=== PATIENT | female | born 1960 | race Caucasian/White ===

== ENCOUNTER → 2018-07-15 | Day surgery (SDC) | payer BC ==
[~2018-07-15] MED LIST: ACYC400T PO; ALBU0.63 NEB; ALBU2.5V8 INH; ALBUTEROL SULFATE 2.5 MG/3 ML NEBU. NEB PRN; ATROPINE 0.5 MG/5 ML DISP.SYRIN. IV PRN; BUPR300T4 PO; CHOL500016 PO; CYAN10005 PO; ESTR1TAB15 PO; IV RINGERS SOLUTION,LACTATED 1,000 ML IV SCH; LACT1CAP8 PO; LIDOCAINE 2% PF Vial for OR 5 ML VIAL. ONE; LISI-334 PO; MAGN400T22 PO; MEDR2.5T28 PO; NALOXONE 0.4 MG/ML VIAL. IV PRN; OMEG-33 PO; OMEP40CA5 PO; ONDA4TAB7 PO; ONDANSETRON PF 4 MG/2 ML VIAL. IV PRN; PROPOFOL 40 ML IV ONE; TRAM50TA PO; UBID30CA9 PO; diphenhydrAMINE 50 MG/ML VIAL IV PRN
[2018-07-15 10:10] VITALS: BP 128/82
== END | disposition home or self-care (01) ==
LOC: SURG 07:49
PROVIDERS: ATTEND Internal Medicine Gastroenterology
DX: Z12.11 Encounter for screening for malignant neoplasm of colon (principal); K63.3 Ulcer of intestine; K52.89 Other specified noninfective gastroenteritis and colitis; Z86.010 Personal history of colon polyps; Z79.899 Other long term (current) drug therapy; Z98.890 Other specified postprocedural states; I10 Essential (primary) hypertension; J45.909 Unspecified asthma, uncomplicated; K21.9 Gastro-esophageal reflux disease without esophagitis; F32.9 Major depressive disorder, single episode, unspecified; I25.2 Old myocardial infarction
CPT/HCPCS: 45380; J2704; J7120; J2001

== ENCOUNTER → 2018-07-28 | Outpatient (CLI) | payer BC ==
[2018-07-15 10:10] VITALS: BP 128/82
[~2018-07-28] MED LIST changes: -ALBUTEROL SULFATE 2.5 MG/3 ML NEBU. NEB PRN; -ATROPINE 0.5 MG/5 ML DISP.SYRIN. IV PRN; +IOHEXOL 240 MG/ML 50ML VIAL. ONE; +IOHEXOL 240 MG/ML 50ML VIAL. PO ONE; +IOHEXOL 300 MG/ML 75 ML VIAL. IV ONE; -IV RINGERS SOLUTION,LACTATED 1,000 ML IV SCH; -LIDOCAINE 2% PF Vial for OR 5 ML VIAL. ONE; -NALOXONE 0.4 MG/ML VIAL. IV PRN; -ONDANSETRON PF 4 MG/2 ML VIAL. IV PRN; -PROPOFOL 40 ML IV ONE; -diphenhydrAMINE 50 MG/ML VIAL IV PRN
--- NOTE | 2018-07-28 11:14 | RAD ---
CT angiography of the abdomen and pelvis 07/28/2018 INDICATION: Abnormal colonoscopy COMPARISON STUDY: None TECHNIQUE: Multidetector CT imaging of the abdomen and pelvis was obtained following the administration of IV contrast. 3-D maximum intensity projection reconstructions of abdominal pelvic vasculature were created on an independent workstation and reviewed. FINDINGS: The lung bases are unremarkable. Visualized thoracic aorta is unremarkable. The abdominal aorta is normal in course and caliber without evidence of aneurysm, dissection, or flow-limiting stenosis. Celiac artery, superior mesenteric artery, renal arteries, and inferior mesenteric artery are patent. Common, internal, and external iliac arteries are patent. Common femoral arteries are patent. Liver, gallbladder, spleen, adrenal glands, pancreas are grossly unremarkable. There is a 6 mm hypodensity in the inferior left kidney,, which cannot be characterized on the basis of this exam. Findings may represent a small cyst. There is no bowel obstruction. Mildly increased stool is noted throughout the colon. There is bowel wall thickening involving a short segment of sigmoid colon. Sigmoid colon diverticulosis is noted. No surrounding inflammatory changes are identified. Evaluation of the large bowel is somewhat limited given presence of stool lack of enteric contrast within the colon. No other focal inflammatory changes or overt mass lesions are identified. The appendix is unremarkable. The bladder is grossly unremarkable small enhancing mass seen in the left uterine fundus may represent a fibroid. CT is limited for evaluation. No free fluid or free air is seen in the abdomen or pelvis. No pathologically enlarged adenopathy is seen in the abdomen or pelvis. No acute osseous changes are seen. Prior ORIF left-sided ribs noted. IMPRESSION: 1. Abnormal thickening of short segment of sigmoid colon. Correlate with findings recent endoscopy. Neoplastic etiology not excluded. Focal inflammatory change is possible, though no surrounding inflammatory changes in the mesentery or elsewhere in the abdomen or pelvis are identified. 2. No vascular abnormalities are identified. Normal CT angiographic appearance of the abdomen and pelvis 3. Nonspecific 6 mm hypodensity inferior left kidney. Statistically this most likely represents small cyst, though CT is limited for characterization. Consider follow-up ultrasound as clinically indicated. 4. Distal colonic diverticulosis CT DOSING PQRS STATEMENT: One or more of the following individualized dose reduction techniques were utilized for this examination: 1. Automated exposure control 2. Adjustment of the mA and/or kV according to patient size 3. Use of iterative reconstruction technique Electronically signed by: Anthony Farrell MD (07/28/2018 11:11 AM) [id number]
== END | disposition home or self-care (01) ==
LOC: CT 08:19
PROVIDERS: ATTEND Internal Medicine Gastroenterology
DX: K57.30 Diverticulosis of large intestine without perforation or abscess without bleeding (principal); K55.9 Vascular disorder of intestine, unspecified
CPT/HCPCS: 74174; Q9966; Q9967

== ENCOUNTER → 2018-09-02 | Day surgery (SDC) | payer BC ==
[~2018-09-02] MED LIST changes: +ALBUTEROL SULFATE 2.5 MG/3 ML NEBU. NEB PRN; +ATROPINE 0.5 MG/5 ML DISP.SYRIN. IV PRN; -IOHEXOL 240 MG/ML 50ML VIAL. ONE; -IOHEXOL 240 MG/ML 50ML VIAL. PO ONE; -IOHEXOL 300 MG/ML 75 ML VIAL. IV ONE; +IV RINGERS SOLUTION,LACTATED 1,000 ML IV SCH; +LIDOCAINE 2% PF Vial for OR 5 ML VIAL. ONE; +NALOXONE 0.4 MG/ML VIAL. IV PRN; +ONDANSETRON PF 4 MG/2 ML VIAL. IV PRN; +PROPOFOL 40 ML IV ONE; +diphenhydrAMINE 50 MG/ML VIAL IV PRN
[2018-09-02 11:34] VITALS: BP 119/67
== END | disposition home or self-care (01) ==
LOC: SURG 08:20
PROVIDERS: ATTEND Internal Medicine Gastroenterology
DX: K57.30 Diverticulosis of large intestine without perforation or abscess without bleeding (principal); I10 Essential (primary) hypertension; K21.9 Gastro-esophageal reflux disease without esophagitis; J45.909 Unspecified asthma, uncomplicated; F32.9 Major depressive disorder, single episode, unspecified; I25.2 Old myocardial infarction; I25.10 Atherosclerotic heart disease of native coronary artery without angina pectoris; Z98.890 Other specified postprocedural states; Z72.89 Other problems related to lifestyle; Z79.899 Other long term (current) drug therapy
CPT/HCPCS: 45378; J2704; J7120; J2001

== ENCOUNTER → 2020-03-31 | Outpatient (CLI) | payer BC ==
[2018-09-02 11:34] VITALS: BP 119/67
[~2020-03-31] MED LIST changes: -ALBUTEROL SULFATE 2.5 MG/3 ML NEBU. NEB PRN; -ATROPINE 0.5 MG/5 ML DISP.SYRIN. IV PRN; -BUPR300T4 PO; +BUPR300T92 PO; +CYAN-25 PO; -CYAN10005 PO; -IV RINGERS SOLUTION,LACTATED 1,000 ML IV SCH; -LIDOCAINE 2% PF Vial for OR 5 ML VIAL. ONE; -NALOXONE 0.4 MG/ML VIAL. IV PRN; +OMEP40CA45 PO; -OMEP40CA5 PO; -ONDANSETRON PF 4 MG/2 ML VIAL. IV PRN; -PROPOFOL 40 ML IV ONE; -diphenhydrAMINE 50 MG/ML VIAL IV PRN
--- NOTE | 2020-03-31 08:59 | RAD ---
EXAMINATION: US THYROID, 03/31/2020 7:56 AM CLINICAL INDICATION: Enlarged thyroid TECHNIQUE: Grayscale and color Doppler sonographic images of the thyroid are submitted for interpreta tion. COMPARISON: None. FINDINGS: Right thyroid lobe measures 4.2 x 1.6 x 1.5 cm. The left thyroid lobe measures 3.8 x 1.2 x 1.2 cm. The isthmus measures 3 mm. Thyroid parenchyma is homogeneous and normal in appearance. There is normal blood flow. There are a few tiny 2 mm cyst bilaterally. No suspicious thyroid nodules. IMPRESSION: Unremarkable thyroid gland. No suspicious thyroid nodules. Electronically signed by: Deyanira Motta MD (03/31/2020 8:56 AM) [id number]
== END ==
LOC: US 07:46
PROVIDERS: ATTEND Physician Assistant Medical
DX: E04.1 Nontoxic single thyroid nodule (principal); E04.9 Nontoxic goiter, unspecified
CPT/HCPCS: 76536

== ENCOUNTER → 2020-06-24 | Outpatient (CLI) | payer BC ==
[2018-09-02 11:34] VITALS: BP 119/67
[~2020-06-24] MED LIST changes: -LISI-334 PO; +LISI20TA18 PO
--- NOTE | 2020-06-24 17:38 | RAD ---
Study: XR CERVICAL SPINE 4-5V Indication: Right arm/hand tingling. Neck pain. Comparison: None. Findings: Trace anterolisthesis of C5 on C6. No widening of the atlantodental interval with degenerative remode ling. Within normal limits C1-C2 alignment. Incompletely assessed dens due to the overlying maxilla. Facet degeneration and hypertrophy greatest on the right at C3-C4. Uncovertebral joint hypertrophy gr eatest on the right at C3-C4. Though potentially accentuated by obliquity, there appears to be severe osseous neural foraminal stenosis on the right at C3-C4 and to a lesser extent at C4-C5 and C5-C6. N o apparent osseous neural foraminal stenosis on the left. No significant disc space narrowing. Plate and screw fixation of the left clavicle and several left ribs. Impression: As detailed above, degenerative changes greatest at C3-C4 on the right potentially resulting in sever e osseous neural foraminal stenosis. Electronically signed by: CINDY JONES MD (06/24/2020 5:35 PM) [facility]
== END ==
LOC: DXRAD 15:15
PROVIDERS: ATTEND Chiropractor
DX: M47.812 Spondylosis without myelopathy or radiculopathy, cervical region (principal); M48.02 Spinal stenosis, cervical region
CPT/HCPCS: 72050

== ENCOUNTER → 2021-03-27 | Outpatient (CLI) | payer BC ==
[2018-09-02 11:34] VITALS: BP 119/67
[~2021-03-27] MED LIST changes: +ACYC-12 PO; -ACYC400T PO; -OMEP40CA45 PO; +OMEP40CA7 PO
--- NOTE | 2021-03-27 17:32 | RAD ---
CT scan of the cervical spine without contrast 03/27/2021 Clinical history: Neck pain. Technique: Unenhanced, contiguous, 0.625 mm axial sections were obtained through the cervical spine. 2 mm reconstructed axial and 2 mm coronal and sagittal reconstructed images were obtained. One or more of the following individualized dose reduction techniques were utilized for this study: 1. Automated exposure control. 2. Adjustment of the mA and/or kV according to patient size. 3. Use of iterative reconstruction technique. Findings: Comparison is made to radiographs of cervical spine dated 06/24/2020. Sagittal and coronal reconstructed images demonstrate straightening of the normal cervical lordosis. No fracture or subluxation of the cervical vertebrae is seen. Degenerative changes are seen involving the cervical disc spaces consisting of minimal to mild genera lized disc bulges and degenerative changes involving the uncovertebral and facet joints. These findin gs do not result in significant central spinal canal stenosis at any level. Mild right neural foramin al stenosis is seen at C3-4 and C4-5. IMPRESSION: Degenerative changes are seen throughout the cervical spine. These findings do not result in significant central spinal canal stenosis at any level. Mild right neural foraminal stenosis is s een at C3-4 and C4-5. No acute osseous abnormality is seen. Electronically signed by: Catarino Cooper MD (03/27/2021 5:29 PM) [id number]
== END ==
LOC: CT 15:29
PROVIDERS: ATTEND Physician Assistant Medical
DX: M48.02 Spinal stenosis, cervical region (principal); M54.2 Cervicalgia
CPT/HCPCS: 72125